=== PATIENT | male | born 1940 | race Caucasian/White ===

== ENCOUNTER 2016-10-30 17:19 | Emergency (ER) | payer MEDICARE, BC ==
[2016-10-30] MEDS ORDERED: diphenhydrAMINE 25 MG Cap PO ONE (17:29)
[2016-10-30] MEDS ORDERED: diphenhydrAMINE 25 MG Cap ONE (17:48)
[2016-10-30 18:27] VITALS: BP 142/76
--- NOTE | 2016-11-02 07:54 | ER ---
Date of Service: 10/30/2016 SUBJECTIVE: Inder presents to the emergency room with complaints of a bee sting to his left inner thigh. The patient states that he sustained the bite yesterday. He states that he has not been experiencing any systemic symptoms such as shortness of breath, throat tightness, or other worrisome signs or symptoms. The patient is concerned as the area is still erythematous. He states that he has not put any steroid cream on the bite and has not taken any oral antihistamine. PAST MEDICAL HISTORY: Denies. MEDICATIONS: None. ALLERGIES: NKDA. REVIEW OF SYSTEMS: General: No fever or chills. HEENT: No sore throat, rhinorrhea, congestion. Respiratory: No shortness breath. Cardiac: Denies any substernal chest pain. No jaw, arm, neck, or back pain. GI: No nausea, vomiting, or diarrhea. No melena, hematochezia, or hematemesis. : Denies any dysuria. Musculoskeletal: Again, complains of mild erythema and discomfort to his left upper inner thigh. Remainder of his review of systems is noncontributory. PHYSICAL EXAMINATION: General: This is a 76-year-old male patient, who is in no acute distress. Vital Signs: Blood pressure is 142/76, pulse rate is 66, temperature is 36.7, respiratory rate 12, O2 saturations 97%. Skin: Warm, pink, and dry. HEENT: Mouth, oral mucosa is moist. Lungs: Clear to auscultation. Heart: Regular rate and rhythm. Musculoskeletal: The patient has approximately 2 cm mildly erythematous lesion with evidence of an insect bite in the center. There is no evidence of any retained stinger. No urticaria or erythema aside from the small area around the insect bite. Remainder of his physical examination is within normal limits. ASSESSMENT: Bee sting. PLAN: The patient was given 50 mg of Benadryl p.o. He remained stable under my care in the emergency room. The patient will be discharged. He can take Benadryl 50 mg every 4-6 hours as needed for pruritus or discomfort. Also, he should obtain some cortisone cream to apply 4-6 times daily to the lesion. Return to the emergency room if he develops any throat tightness or shortness of breath. All questions were answered. MWK: 10/30/2016 19:07:03 MODL: 10/30/2016 20:38:22 /[id number]
== END 2016-10-30 17:55 | disposition home or self-care (01) ==
LOC: VM.ED 17:19
DX: T63.441A Toxic effect of venom of bees, accidental (unintentional), initial encounter (principal)
CPT/HCPCS: 99282; A9270